=== PATIENT | female | born 2000 | race Caucasian/White ===

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

== ENCOUNTER 2022-01-07 21:29 | Observation (INO) | payer MEDICAID, OTHER, SELFPAY ==
[~2022-01-07] VITALS: Ht 162.6 cm; Wt 71.1 kg
[2022-01-07] MEDS ORDERED: FLUC150T9 PO (21:44)
[2022-01-07] MEDS ORDERED: CLIN150C17 PO (21:44)
[2022-01-07] MEDS ORDERED: PERI0.126 PO (21:44)
[2022-01-07] MEDS ORDERED: FAMO1TAB11 PO (21:44)
[2022-01-07] MEDS ORDERED: IBUP80TA PO (21:44)
[2022-01-07] MEDS ORDERED: AMOX875T2 PO (21:55)
[2022-01-07] MEDS ORDERED: NS 1,000 ML IV ONE (22:05)
[2022-01-07] MEDS ORDERED: ISOVUE-370 76% 100ML VIAL As Ordered ONE (22:10)
[2022-01-07 22:29] LABS: BASO % 0.2 % (0.0-1.0); EOS % 0.1 % (0.0-3.0); HEMATOCRIT 35.2 % (36.0-47.0); LYMPH # 0.8 10^3/uL (1.5-5.0); LYMPH % 9.8 % (24.0-44.0); MEAN CORPUSCULAR HGB CONC 34.1 g/dl (32.0-36.5); MONO # 0.7 10^3/uL (0.0-0.8); MONO % 8.8 % (2.0-8.0); NEUTROPHILS # 6.7 10^3/uL (1.5-8.5); NEUTROPHILS % 80.6 % (36.0-66.0); PLATELET COUNT, AUTOMATED 198 10^3/uL (150-450); RED BLOOD COUNT 3.87 10^6/uL (4.00-5.40); WHITE BLOOD COUNT 8.3 10^3/uL (4.0-10.0)
[2022-01-07 22:46] LABS: ERYTHROCYTE SEDIMENTATION RATE 29 mm/hr (0-20)
[2022-01-07] MEDS ORDERED: dexameTHASONE 20MG/5ML VIAL (J1100 PER 1MG) IV ONE (22:55)
[2022-01-07] MEDS ORDERED: ACETAMINOPHEN 500 MG TAB PO ONE (22:55)
[2022-01-07] MEDS ORDERED: AMPICILLIN SOD/SULBACTAM SOD 3 GM in D5W MINI-BAG PLUS 100 ML IV ONE (22:55)
[2022-01-07 23:00] LABS: MONO SCRN NEGATIVE (NEGATIVE)
[2022-01-07 23:03] LABS: ALBUMIN 3.8 GM/DL (3.2-5.2); ALT/SGPT 32 U/L (12-78); BILIRUBIN,DIRECT 0.3 MG/DL (0.0-0.2); BILIRUBIN,TOTAL 1.5 MG/DL (0.2-1.0); C REACTIVE PROTEIN QUANTITATIV 1.87 MG/DL (0.00-0.30)
[2022-01-07] MEDS ORDERED: ACETAMINOPHEN SUSP DYE FREE 160 MG/5 ML UDC PO ONE (23:45)
[2022-01-08] MEDS ORDERED: ONDANSETRON 4MG/2ML VIAL IV ONE (00:30)
[2022-01-08] MEDS ORDERED: HOME MED LIST COMPLETE! XX SCH (01:25)
[2022-01-08] MEDS ORDERED: AMPICILLIN SOD/SULBACTAM SOD 1.5 GM in D5W MINI-BAG PLUS 100 ML IV SCH (01:30)
[2022-01-08] MEDS: AMPICILLIN SOD/SULBACTAM SOD 1.5 GM in D5W MINI-BAG PLUS 50 ML IV SCH ×4 (06:12→22:01)
[2022-01-08] MEDS: FAMOTIDINE 20 MG TAB PO SCH (10:29)
[2022-01-08 10:52] LABS: GC DNA AMPLIFICATION NEGATIVE (NEGATIVE)
[2022-01-08] MEDS ORDERED: dexameTHASONE 20MG/5ML VIAL (J1100 PER 1MG) IV SCH (11:00)
[2022-01-08 11:51] VITALS: BP 106/64
[2022-01-08] MEDS: CHLORHEXIDINE GLUCONATE 0.12 % 15ML UDC (PERIDEX ORAL RINSE) MT SCH ×2 (12:32→19:59)
[2022-01-08 14:00] VITALS: BP 108/68
[2022-01-08] MEDS: ACETAMINOPHEN TAB 650MG DOSE (2X325MG) PO PRN (18:36)
[2022-01-08] MEDS: ENOXAPARIN 40MG/0.4ML SYRINGE (J1650 PER 10MG) SC SCH (19:59)
[2022-01-08] MEDS: dexameTHASONE 4 MG/ML 1ML VIAL (J1100 PER 1MG) IV SCH (20:04)
[2022-01-08 22:00] VITALS: BP 133/67
[2022-01-09] MEDS: dexameTHASONE 4 MG/ML 1ML VIAL (J1100 PER 1MG) IV SCH ×3 (03:58→19:13)
[2022-01-09] MEDS: AMPICILLIN SOD/SULBACTAM SOD 1.5 GM in D5W MINI-BAG PLUS 50 ML IV SCH ×2 (04:00→11:22)
[2022-01-09 06:50] LABS: BASO % 0.1 % (0.0-1.0); HEMATOCRIT 36.2 % (36.0-47.0); HEMOGLOBIN 12.3 g/dl (12.0-15.5); LYMPH # 0.6 10^3/uL (1.5-5.0); LYMPH % 7.6 % (24.0-44.0); MEAN CORPUSCULAR HEMOGLOBIN 31.1 pg (27.0-33.0); MEAN CORPUSCULAR VOLUME 91.4 fl (80.0-96.0); MONO # 0.3 10^3/uL (0.0-0.8); MONO % 3.4 % (2.0-8.0); NEUTROPHILS # 7.4 10^3/uL (1.5-8.5); NEUTROPHILS % 88.4 % (36.0-66.0); PLATELET COUNT, AUTOMATED 251 10^3/uL (150-450); RED BLOOD COUNT 3.96 10^6/uL (4.00-5.40); WHITE BLOOD COUNT 8.4 10^3/uL (4.0-10.0)
[2022-01-09 07:24] LABS: BLOOD UREA NITROGEN 14 MG/DL (7-18); CALCIUM LEVEL 9.2 MG/DL (8.5-10.1); CARBON DIOXIDE LEVEL 27 MEQ/L (21-32); CHLORIDE LEVEL 107 MEQ/L (98-107); CREATININE FOR GFR 0.67 MG/DL (0.55-1.30); GLUCOSE, FASTING 128 MG/DL (70-100); MAGNESIUM LEVEL 2.3 MG/DL (1.8-2.4); PHOSPHORUS LEVEL 3.7 MG/DL (2.5-4.9); POTASSIUM SERUM 4.5 MEQ/L (3.5-5.1); SODIUM LEVEL 139 MEQ/L (136-145)
[2022-01-09] MEDS: FAMOTIDINE 20 MG TAB PO SCH (08:28)
[2022-01-09] MEDS: CHLORHEXIDINE GLUCONATE 0.12 % 15ML UDC (PERIDEX ORAL RINSE) MT SCH ×2 (08:28→20:40)
[2022-01-09] MEDS ORDERED: CLINDAMYCIN 300 MG in IV 1 EA IV SCH (11:55)
[2022-01-09] MEDS: CLINDAMYCIN 600 MG in IV 1 EA IV SCH ×2 (12:57→20:42)
[2022-01-09 14:00] VITALS: BP 117/59
[2022-01-09 14:10] LABS: APPEARANCE, URINE CLEAR (CLEAR); BACTERIA, URINE AUTO NEGATIVE (NEGATIVE); BILIRUBIN, URINE AUTO NEGATIVE (NEGATIVE); BLOOD, URINE BLOOD NEGATIVE (NEGATIVE); COLOR, URINE YELLOW (YELLOW); GLUCOSE, URINE (UA) AUTO NEGATIVE (NEGATIVE); KETONE, URINE AUTO NEGATIVE (NEGATIVE); LEUKOCYTE ESTERASE, URINE AUTO NEGATIVE (NEGATIVE); NITRITE, URINE AUTO NEGATIVE (NEGATIVE); PROTEIN, URINE AUTO NEGATIVE (NEGATIVE); RBC, URINE AUTO 0 /HPF (0-3); SPECIFIC GRAVITY URINE AUTO 1.012 (1.002-1.035); SQUAMOUS EPITHELIAL CELL UR AU 9 /HPF (0-6); UROBILINOGEN, URINE AUTO 0.2 mg/dL (0.0-2.0); WBC, URINE AUTO 0 /HPF (0-3)
[2022-01-09] MEDS ORDERED: FLUCONAZOLE 50MG TABLET PO ONE (15:00)
[2022-01-09 15:28] LABS: GC DNA AMPLIFICATION NEGATIVE (NEGATIVE)
[2022-01-09 18:00] VITALS: BP 115/76
[2022-01-09] MEDS: ENOXAPARIN 40MG/0.4ML SYRINGE (J1650 PER 10MG) SC SCH (20:42)
[2022-01-09] MEDS: ACETAMINOPHEN TAB 650MG DOSE (2X325MG) PO PRN (20:43)
[2022-01-09 21:30] VITALS: BP 113/69
[2022-01-10] MEDS: dexameTHASONE 4 MG/ML 1ML VIAL (J1100 PER 1MG) IV SCH ×2 (04:00→10:36)
[2022-01-10] MEDS: CLINDAMYCIN 600 MG in IV 1 EA IV SCH ×2 (04:01→15:50)
[2022-01-10 05:36] VITALS: BP 107/64
[2022-01-10 06:19] LABS: ALBUMIN 3.5 GM/DL (3.2-5.2); ALT/SGPT 31 U/L (12-78); BILIRUBIN,TOTAL 0.5 MG/DL (0.2-1.0); BLOOD UREA NITROGEN 12 MG/DL (7-18); CARBON DIOXIDE LEVEL 24 MEQ/L (21-32); CHLORIDE LEVEL 109 MEQ/L (98-107); CREATININE FOR GFR 0.57 MG/DL (0.55-1.30); GLUCOSE, FASTING 162 MG/DL (70-100); POTASSIUM SERUM 4.1 MEQ/L (3.5-5.1); SODIUM LEVEL 140 MEQ/L (136-145)
[2022-01-10] MEDS: CHLORHEXIDINE GLUCONATE 0.12 % 15ML UDC (PERIDEX ORAL RINSE) MT SCH (10:36)
[2022-01-10] MEDS: FAMOTIDINE 20 MG TAB PO SCH (10:36)
[2022-01-10] MEDS ORDERED: PRED10TA2 PO (13:56)
[2022-01-10 15:07] LABS: LIPASE 40 U/L (73-393)
[2022-01-10] MEDS ORDERED: ISOVUE-370 76% 100ML VIAL As Ordered ONE (15:16)
[2022-01-10 15:24] LABS: LIPASE 30 U/L (73-393)
[2022-01-10] MEDS ORDERED: ONDANSETRON 4MG TAB PO ONE (16:25)
[2022-01-10] MEDS ORDERED: ONDA-83 PO (16:29)
[2022-01-10] MEDS: ACETAMINOPHEN TAB 650MG DOSE (2X325MG) PO PRN (17:01)
== END 2022-01-10 17:35 | disposition home or self-care (01) ==
LOC: M ED 21:29 → M ED INP 21:30 → ENRESERV 01-08 11:10 → M MSPAV 01-08 11:52
PROVIDERS: ADMIT Internal Medicine; ATTEND Internal Medicine
DX: J03.90 Acute tonsillitis, unspecified (principal); D27.1 Benign neoplasm of left ovary; N83.291 Other ovarian cyst, right side; Z79.899 Other long term (current) drug therapy; Z79.52 Long term (current) use of systemic steroids; F17.290 Nicotine dependence, other tobacco product, uncomplicated
CPT/HCPCS: 36415; 70491; 74177; 80047; 80048; 80053; 80076; 81001; 82728; 83605; 83690; 83735; 84100; 84702; 85025; 85652; 86140; 86308; 87040; 87070; 87102; 87661; 87798; 87810; 87850; 96365; 96366; 96375; 96376; 99284; J0295; J1100; J1650; J2405; Q9967

== ENCOUNTER 2022-01-26 06:09 | Day surgery (SDC) | payer MEDICAID ==
[~2022-01-26] VITALS: Ht 162.6 cm; Wt 73.5 kg
[~2022-01-26 06:09] MED LIST changes: +AMOX875T2 PO; +CLIN150C17 PO; +FAMO1TAB11 PO; +FLUC150T9 PO; +IBUP80TA PO; +LIDOCAINE 1% MDV 20ML VIAL SQ PRN; +LR 1,000 ML IV ONE; +ONDA-83 PO; +PERI0.126 PO; +dexameTHASONE 4 MG/ML 1ML VIAL (J1100 PER 1MG) IV ONE
[2022-01-26] MEDS ORDERED: IBUP200C28 PO (06:36)
[2022-01-26] MEDS ORDERED: OXYMETAZOLINE 0.05% NASAL SPRAY (AFRIN) As Ordered ONE (07:10)
[2022-01-26] MEDS ORDERED: dexameTHASONE 4 MG/ML 1ML VIAL (J1100 PER 1MG) As Ordered ONE (08:01)
[2022-01-26] MEDS ORDERED: ROCURONIUM BROMIDE 50 MG/5 ML VIAL As Ordered ONE (08:01)
[2022-01-26] MEDS ORDERED: MIDAZOLAM INJ 2MG/2ML VIAL (J2250 PER 1MG) As Ordered ONE (08:01)
[2022-01-26] MEDS ORDERED: fentaNYL 100 MCG/2 ML INJECTION As Ordered ONE (08:01)
[2022-01-26] MEDS ORDERED: ONDANSETRON 4MG/2ML VIAL As Ordered ONE (08:01)
[2022-01-26] MEDS ORDERED: LIDOCAINE 2% 100MG/5ML SDV (FOR ANES.) As Ordered ONE (08:01)
[2022-01-26] MEDS ORDERED: ACETAMINOPHEN 1000MG 100ML IV BTL (OFIRMEV) (J0131 PER 10MG) As Ordered ONE (08:06)
[2022-01-26] MEDS ORDERED: SUGAMMADEX SODIUM 500 MG/5 ML VIAL (BRIDION) As Ordered ONE (08:18)
[2022-01-26] MEDS ORDERED: METOCLOPRAMIDE INJ 10MG/2ML VIAL (J2765 PER 1) IV PRN (09:00)
[2022-01-26] MEDS ORDERED: LR 1,000 ML IV SCH ×2 (09:00→09:05)
[2022-01-26] MEDS ORDERED: ONDANSETRON 4MG/2ML VIAL IV PRN (09:00)
[2022-01-26] MEDS ORDERED: fentaNYL 100 MCG/2 ML INJECTION IV PRN (09:00)
[2022-01-26] MEDS ORDERED: oxyCODONE 5MG TAB PO PRN (09:00)
[2022-01-26 09:15] VITALS: BP 110/70
== END 2022-01-26 09:45 | disposition home or self-care (01) ==
LOC: M SDC 06:09
PROVIDERS: ATTEND Otolaryngology
DX: J35.01 Chronic tonsillitis (principal); F17.290 Nicotine dependence, other tobacco product, uncomplicated; A63.0 Anogenital (venereal) warts; F41.9 Anxiety disorder, unspecified; Z79.899 Other long term (current) drug therapy
CPT/HCPCS: 42826; 81025; 88302; J0131; J1100; J2250; J2405; J3010

== ENCOUNTER → 2022-02-11 | Outpatient (REF) | payer MEDICAID ==
[~2022-02-11] MED LIST changes: +IBUP200C28 PO; -LIDOCAINE 1% MDV 20ML VIAL SQ PRN; -LR 1,000 ML IV ONE; -dexameTHASONE 4 MG/ML 1ML VIAL (J1100 PER 1MG) IV ONE
== END ==
LOC: M SFHCADAM 12:35
PROVIDERS: ATTEND Family Medicine
DX: R05.9 Cough, unspecified (principal)

== ENCOUNTER → 2022-02-18 | Outpatient (REF) | payer OTHER | LOC: M LAB REF 15:53 | PROVIDERS: ATTEND Physician Assistant | DX: R05.9 Cough, unspecified (principal) ==

== ENCOUNTER 2022-05-06 09:56 | Day surgery (SDC) | payer OTHER ==
[~2022-05-06] VITALS: Ht 162.6 cm; Wt 72.5 kg
[~2022-05-06 09:56] MED LIST changes: +BUPIVACAINE HCL 0.25% 30ML VIAL As Ordered ONE; +PARO5TAB PO; +ZOLP5TAB PO
[2022-05-06] MEDS ORDERED: ZYRTTAB8 PO (10:22)
[2022-05-06 10:45] LABS: HEMATOCRIT 37.2 % (36.0-47.0); MEAN CORPUSCULAR HEMOGLOBIN 30.1 pg (27.0-33.0); MEAN CORPUSCULAR HGB CONC 32.3 g/dl (32.0-36.5); MEAN CORPUSCULAR VOLUME 93.2 fl (80.0-96.0); PLATELET COUNT, AUTOMATED 191 10^3/uL (150-450); RED BLOOD COUNT 3.99 10^6/uL (4.00-5.40); WHITE BLOOD COUNT 4.9 10^3/uL (4.0-10.0)
[2022-05-06] MEDS ORDERED: propofoL 200 MG/20 ML VIAL As Ordered ONE (11:09)
[2022-05-06] MEDS ORDERED: ONDANSETRON 4MG 2ML VIAL As Ordered ONE (11:09)
[2022-05-06] MEDS ORDERED: ROCURONIUM BROMIDE 50 MG/5 ML VIAL As Ordered ONE (11:09)
[2022-05-06] MEDS ORDERED: dexameTHASONE 4 MG/ML 1ML VIAL (J1100 PER 1MG) As Ordered ONE (11:09)
[2022-05-06] MEDS ORDERED: fentaNYL 100 MCG/2 ML INJECTION As Ordered ONE (11:09)
[2022-05-06] MEDS ORDERED: MIDAZOLAM INJ 2MG/2ML VIAL (J2250 PER 1MG) As Ordered ONE (11:09)
[2022-05-06] MEDS ORDERED: LIDOCAINE 2% 100MG/5ML SDV (FOR ANES.) As Ordered ONE (11:09)
[2022-05-06] MEDS ORDERED: IBUP-1022 PO (11:24)
[2022-05-06] MEDS ORDERED: OXYC1TAB23 PO (11:25)
[2022-05-06] MEDS ORDERED: ONDANSETRON 4MG 2ML VIAL IV PRN (13:20)
[2022-05-06] MEDS ORDERED: LR 1,000 ML IV SCH (13:20)
[2022-05-06] MEDS ORDERED: fentaNYL 100 MCG/2 ML INJECTION IV PRN (13:20)
[2022-05-06] MEDS ORDERED: BUPIVACAINE HCL 0.25% 10ML VIAL As Ordered ONE (13:30)
[2022-05-06] MEDS ORDERED: KETAMINE HCL 200 MG/20 ML VIAL As Ordered ONE (13:33)
[2022-05-06] MEDS: MORPHINE 2 MG/ML 1ML VIAL IV PRN ×2 (13:38→14:00)
[2022-05-06] MEDS: oxyCODONE 5MG TAB PO PRN ×2 (13:39→14:32)
[2022-05-06 15:21] VITALS: BP 112/62
== END 2022-05-06 15:50 | disposition home or self-care (01) ==
LOC: M SDC 09:56
PROVIDERS: ATTEND Specialist
DX: N83.202 Unspecified ovarian cyst, left side (principal); N83.201 Unspecified ovarian cyst, right side; F41.9 Anxiety disorder, unspecified; F32.A Depression, unspecified; Z79.899 Other long term (current) drug therapy
CPT/HCPCS: 36415; 58662; 81025; 85027; 88305; J1100; J2250; J2270; J2405; J3010

== ENCOUNTER → 2022-12-06 | Outpatient (REF) | payer OTHER ==
[~2022-12-06] MED LIST changes: -BUPIVACAINE HCL 0.25% 30ML VIAL As Ordered ONE; +IBUP-1022 PO; +OXYC1TAB23 PO; +ZYRTTAB8 PO
== END ==
LOC: M SFHCWAGY 17:20
PROVIDERS: ATTEND Specialist
DX: R10.2 Pelvic and perineal pain (principal)